=== PATIENT | female | born 1955 | race African-American/Black ===

== ENCOUNTER 2018-10-22 00:09 | Outpatient (CLI) | payer MEDICARE, BC ==
[2018-10-22 10:05] LABS: Hemoglobin 12.1 g/dL (12.0-16.0); Mean Corpuscular HGB CONC 30.3 g/dL (32.0-36.0); Mean Corpuscular Hemoglobin 21.9 pg (27.0-31.0); Mean Corpuscular Volume 72.3 fL (78.0-98.0); PTT 42.4 SEC (22.9-36.1); Platelet Count 346 thou/uL (130-400); Prothrombin Time 13.5 SEC (12.0-14.7); RBC Distribution Width 16.8 % (11.5-14.5); Red Blood Cell (RBC) Count 5.55 mill/uL (4.20-5.40); White Blood Cell (WBC) Count 8.4 thou/uL (4.8-10.8)
[2018-10-22 10:10] LABS: Anion Gap 13 mmol/L (10-20); BUN (Urea Nitrogen) 22 mg/dL (9.8-20.1); Calc. Creatinine Clearance 0 mL/min (70-130); Calcium 9.3 mg/dL (7.8-10.44); Carbon Dioxide 17 mmol/L (23-31); Chloride 115 mmol/L (98-107); Estimated GFR-MDRD 49; Glucose 81 mg/dL (80-115); Potassium 4.6 mmol/L (3.5-5.1); Sodium 140 mmol/L (136-145)
== END 2018-10-22 00:10 | disposition home or self-care (01) ==
LOC: LABBT 00:09
PROVIDERS: ATTEND Surgery
DX: Z01.818 Encounter for other preprocedural examination (principal); M47.12 Other spondylosis with myelopathy, cervical region
CPT/HCPCS: 80048; 85027; 85610; 85730; 87081

== ENCOUNTER 2018-10-29 05:36 | Day surgery (SDC) | payer MEDICARE, BC ==
[2018-10-22 08:39] VITALS: BMI 30.9
[2018-10-29] MEDS ORDERED: Fentanyl 100 MCG/2 ML VIAL ONE (07:40)
[2018-10-29] MEDS ORDERED: Rocuronium Bromide 50 MG/5 ML VIAL ONE (08:44)
[2018-10-29] MEDS ORDERED: SUGAMMADEX SODIUM 200 MG/2 ML VIAL ONE (10:08)
[2018-10-29] MEDS ORDERED: SUGAMMADEX SODIUM 500 MG/5 ML VIAL ONE (10:08)
[2018-10-29] MEDS ORDERED: Promethazine HCl 25 MG/ML VIAL IM/IV PRN (10:16)
[2018-10-29] MEDS ORDERED: Milk Of Magnesia 30 ML UDCUP PO PRN (10:16)
[2018-10-29] MEDS ORDERED: traMADol HCl 50 MG TAB PO PRN (10:16)
[2018-10-29] MEDS ORDERED: Ondansetron PF 4 MG/2 ML Vial IVP PRN (10:16)
[2018-10-29] MEDS ORDERED: Fleet Enema 133 ML BOT PR PRN (10:16)
[2018-10-29] MEDS ORDERED: Bisacodyl 10 MG SUPP PR PRN (10:16)
[2018-10-29] MEDS ORDERED: Mag-Al 1200 mg/1200 mg/30 ML UDCUP PO PRN (10:16)
[2018-10-29] MEDS ORDERED: Morphine 2 MG/ML SYRINGE SLOW IVP PRN (10:16)
[2018-10-29] MEDS ORDERED: HYDROcodone/Acetaminophen 7.5/325 mg Tablet PO PRN (10:16)
[2018-10-29] MEDS ORDERED: tiZANidine HCl 4 MG TAB PO PRN (10:16)
[2018-10-29] MEDS ORDERED: Acetaminophen/Codeine 30-300mg Tablet PO PRN (10:16)
[2018-10-29] MEDS ORDERED: valACYclovir 500 MG TAB PO PRN (10:18)
[2018-10-29] MEDS: Sodium Chloride 0.9% 1,000 ML IV SCH ×2 (13:16→23:19)
[2018-10-29] MEDS ORDERED: Prevnar 13-Val Conj/PF 0.5 ML SYRINGE IM ONE ×2 (13:45→16:30)
[2018-10-29] MEDS: CEFAZOLIN 2 GM in Premix Bag 1 BAG IVPB SCH ×2 (14:37→23:18)
[2018-10-29] MEDS: Acetaminophen 325 MG TAB PO PRN (14:41)
--- NOTE | 2018-10-29 15:07 | OP ---
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 OR: 11. WOUND CLASSIFICATION: Type 1 wound. PREPROCEDURE DIAGNOSES: Multilevel cervical stenosis with myelopathy, radiculopathy. POSTPROCEDURE DIAGNOSES: Multilevel cervical stenosis with myelopathy, radiculopathy. PROCEDURES PERFORMED: 1. Anterior C4-C5, C5-C6, C6-C7 diskectomies for decompression of spinal cord and nerve roots and jew of spinal alignment. 2. Arthrodesis of C4-C5, C5-C6, C6-C7, with interbody spacer packed with local bone autograft obtained from same incision and allograft at C4-C5, C5-C6, C6-C7. 3. Anterior cervical plate and screw fixation, C4, C5, C6, and C7. 4. Use of operative microscope for microdissection. DESCRIPTION OF PROCEDURE: After informed consent was obtained from the patient, the patient was brought to the OR. Proper patient, pause, and identification were carried out. She was placed under excellent general endotracheal anesthesia and positioned supine on the OR table. All appropriate points were padded. Right anterior oblique donta was drawn out and this region was sterilely cleansed, prepared, and draped. Proper patient, pause, and identification were carried out. The wound was then opened with a combination of sharp, monopolar, and blunt dissection, proceeded lateral to the larynx, pharynx, tracheoesophageal bundle, medial to the right carotid sheath. We identified the prevertebral layer of deep cervical fascia and longus colli muscles and these were swept laterally. Localization film confirmed area of interest. The microscope was then brought into the field for microdissection and distraction at C4-C5 then occurred and diskectomy was performed there with satisfactory decompression of common dural tube in the C5 nerve roots bilaterally. Interbody spacer was placed, packed with graft after preparation of endplates for arthrodesis. This procedure was then repeated at C5-C6 and C6-C7 with satisfactory decompression of the common dural tube in the C6 and C7 nerve roots respectively. Arthrodesis was then initiated at C4-C5, C5-C6, C6-C7, all the same way with interbody spacer placement, packed with graft. We were satisfied with our construct. The microscope was removed and anterior cervical plate and screw fixation with final tightening occurred from C4 all the way down to C7. Copious irrigation occurred throughout as did maximizing hemostasis. The wound was then closed in anatomic layers over drain. The patient was then emerged from anesthesia. Job ID: [id number]
[2018-10-29] MEDS ORDERED: Lidocaine 1% PF 5 ML VIAL ONE (15:39)
[2018-10-29] MEDS ORDERED: Glycopyrrolate 0.2 MG/ML 5 ML SYRINGE ONE (15:39)
[2018-10-29] MEDS ORDERED: Phenylephrine HCL 10 MG/ML VIAL ONE (15:39)
[2018-10-29] MEDS ORDERED: ePHEDrine 50 MG/ML VIAL ONE (15:39)
[2018-10-29] MEDS ORDERED: Rocuronium Bromide 10 MG/ML (10ML VIAL) ONE (15:39)
[2018-10-29] MEDS ORDERED: PROPOFOL 200 MG/20 ML VIAL ONE (15:39)
[2018-10-29] MEDS ORDERED: Ondansetron PF 4 MG/2 ML Vial ONE (15:39)
[2018-10-29] MEDS ORDERED: Spironolactone 25 MG TAB PO SCH (17:00)
[2018-10-29] MEDS ORDERED: Clopidogrel Bisulfate 75 MG TAB ONE (20:31)
[2018-10-29] MEDS: AcetaZOLAMIDE 250 MG TAB PO SCH (20:53)
[2018-10-29] MEDS ORDERED: Furosemide 40 MG TAB PO SCH (21:00)
[2018-10-30] MEDS: Acetaminophen 325 MG TAB PO PRN (01:02)
[2018-10-30] MEDS: CEFAZOLIN 2 GM in Premix Bag 1 BAG IVPB SCH (06:24)
[2018-10-30 08:42] VITALS: TEMP 98.8
[2018-10-30] MEDS ORDERED: Atorvastatin Calcium 20 MG TAB PO SCH (09:00)
[2018-10-30] MEDS ORDERED: Amlodipine 10 MG TAB PO SCH (09:00)
[2018-10-30] MEDS: AcetaZOLAMIDE 250 MG TAB PO SCH (09:49)
--- NOTE | 2018-10-30 11:03 | PRG ---
DATE OF SERVICE: 10/30/2018 Ms. Laura is postoperative day 1 from C4 through C7 ACDF. Her drain output was 40 mL overnight. She has mild dysphonia, but has been tolerating oral intake. Her myelopathy and radiculopathy symptoms have significantly improved this morning, she would like to go home. We went over do's and don'ts in the postoperative period. Her strength is excellent. She has already met criteria. We will dismiss her. Job ID: [id number]
[2018-10-30 12:30] VITALS: BP 137/90
== END 2018-10-30 12:00 | disposition home or self-care (01) ==
LOC: UNDOADMIN 05:36 → SURG A 05:36 → SDC 05:36 → EDSTATUS 09:00 → SURG A 12:16 → SDC 10-30 12:00 → UNDODISIN 10-30 12:00
PROVIDERS: ATTEND Surgery
PROC: 0RG20A0 Fusion of 2 or more Cervical Vertebral Joints with Interbody Fusion Device, Anterior Approach, Anterior Column, Open Approach (ICD-10-PCS; principal; 2018-10-29)
PROC: 0RB30ZZ Excision of Cervical Vertebral Disc, Open Approach (ICD-10-PCS; 2018-10-29)
DX: M48.02 Spinal stenosis, cervical region (principal); G99.2 Myelopathy in diseases classified elsewhere; M54.12 Radiculopathy, cervical region; R49.0 Dysphonia
CPT/HCPCS: 20930; 20936; 22551; 22552 ×2; 22853 ×3; 76000; 90670; 97116; 97139 ×2; C1713 ×2; C1776; G0009; 90471; J0690; J2001; J2370; J2405; J2704; J3010; J3490

== ENCOUNTER 2018-12-07 08:50 | Outpatient (CLI) | payer MEDICARE, BC ==
--- NOTE | 2018-12-07 12:46 | RAD ---
CERVICAL SPINE 4 VIEWS: HISTORY: Neck pain. Previous cervical spine surgery on November 29. FINDINGS: There is an anterior fusion plate with a transvertebral body screw at C4, C5, C6, and C7. There is a n associated disk prosthesis at C4-C5, C5-C6, and C6-C7. Vertebral body height is maintained. No fr acture. There is evidence of prevertebral soft tissue swelling which is presumed to be postsurgical. Predental space is normal. There is 2.1 mm anterolisthesis of C7 upon T1. On the open-mouth projection, the lateral masses of C1 and C2 articulate appropriately. Suboptimal e valuation of the odontoid process. On the AP projection, extensive facet hypertrophy is noted. IMPRESSION: 1. Prevertebral soft tissue swelling at the level of the cervical fusion plate, likely postoperative . If there is concern for an infected fluid collection, postcontrast soft tissue neck CT is recommen ded. 2. Grade I anterolisthesis of C7 upon T1. POS: [facility]
== END 2018-12-07 08:51 | disposition home or self-care (01) ==
LOC: TBSIIMAG 08:50
PROVIDERS: ATTEND Surgery
DX: M54.2 Cervicalgia (principal); M43.13 Spondylolisthesis, cervicothoracic region; Z98.890 Other specified postprocedural states
CPT/HCPCS: 72040

== ENCOUNTER 2019-01-20 08:28 | Outpatient (CLI) | payer MEDICARE, BC ==
--- NOTE | 2019-01-20 08:57 | RAD ---
CERVICAL SPINE AP AND LATERAL: 01/20/2019 12:00 a.m. CLINICAL INDICATION: Cervical spondylosis with myelopathy. COMPARISON: 12/07/2018 FINDINGS: No interval acute fracture. Multilevel ACDF spanning C4-C7 again demonstrated with slight perihardwa re lucency seen about the C7 vertebral screw, and there is slight retraction of the anterior metal plate from the anterior confines of the C7 vertebral body. Trace spondylolisthesis at C7-T1 is simil ar appearing. The lateral masses of C1 are appropriately aligned. Partially imaged dens is intact. Prevertebral soft tissue prominence remains. IMPRESSION: Redemonstration of grade I spondylolisthesis at C7-T1. Mild perihilar hardware lucency about the C7 vertebral screw, along with slight separation of the C7 vertebral body and the anterior metallic plate. Correlate for evidence of loosening. Transcribed Date/Time: 01/20/2019 10:30 AM
== END 2019-01-20 08:29 | disposition home or self-care (01) ==
LOC: TBSIIMAG 08:28
PROVIDERS: ATTEND Surgery
DX: M47.12 Other spondylosis with myelopathy, cervical region (principal); M43.13 Spondylolisthesis, cervicothoracic region; Z98.1 Arthrodesis status
CPT/HCPCS: 72040